=== PATIENT | female | born 1945 | race Caucasian/White ===

== ENCOUNTER 2017-02-08 13:42 | Emergency (ER) | payer MEDICARE, OTHER ==
[~2017-02-08] VITALS: Ht 157.5 cm; Wt 57.0 kg
[~2017-02-08 13:42] MED LIST: ASPI81TA82 PO; CEPH500C3 PO; METO25 PO; PRAV20 PO; PREV15CA20 PO
[2017-02-08 13:44] VITALS: BP 177/80; PULSE 83; RESP 16; TEMP 98.3; O2SAT 97
--- NOTE | 2017-02-08 13:50 | PD ---
Physical Exam Time Seen by Provider: 13:46 Narrative Pt presents to the ED for urinary frequency and left lower quadrant discomfort for 3 days. Denies fever. States has a history of recurrent UTIs. VSS. Awaiting bed placement. Data Data Last Documented VS Vital Signs Date Time Temp Pulse Resp B/P Pulse Ox O2 Delivery O2 Flow Rate FiO2 02/08/17 13:44 98.3 83 16 177/80 97 Room Air MDM Supervised Visit with RNEÉ: Alice Mota Feb 08, 2017 13:50
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
[2017-02-08] MEDS ORDERED: LISI-515 PO (14:04)
[2017-02-08] MEDS ORDERED: PRAV20TA2 PO (14:04)
[2017-02-08] MEDS ORDERED: PREV15CA15 PO (14:04)
[2017-02-08] MEDS ORDERED: ASPI1TAB69 PO (14:04)
[2017-02-08 14:28] LABS: BACTERIA, URINE FEW /hpf; BLOOD, URINE SMALL (NEG); COMMENT (UR) CULTURE INDICATED; CULTURE IF INDICATED CULTURE INDICATED; GLUCOSE,URINE NEG (NEG); KETONE, URINE NEG (NEG); NITRITE,URINE NEG (NEG); PH, URINE 5.5 (5.0-8.5); SQUAMOUS EPITHELIAL CELL URINE 1 /hpf (0-5); URINE COLOR YELLOW (YELLW/STRAW)
[2017-02-08] MEDS ORDERED: CIPR-9 PO (14:40)
[2017-02-08] MEDS ORDERED: CEPH-460 PO (14:43)
[2017-02-08] MEDS ORDERED: LIDOCAINE HCL 1% 50 ML VIAL XX ONE (14:45)
== END 2017-02-08 15:32 | disposition home or self-care (01) ==
LOC: NEPD 13:42
DX: N30.01 Acute cystitis with hematuria (principal); B96.20 Unspecified Escherichia coli [E. coli] as the cause of diseases classified elsewhere
CPT/HCPCS: 81001; 87077; 87086; 87186; 96372; 99284; J0696